=== PATIENT | female | born 1955 | race Caucasian/White ===

== ENCOUNTER 2019-02-10 08:31 | Emergency (ER) | payer MEDICARE, BC ==
[2019-02-10 08:45] VITALS: BP 150/71
[2019-02-10] MEDS ORDERED: Aspirin 81 MG Tab.Chew PO ONE (09:52)
--- NOTE | 2019-02-10 10:55 | CR ---
Chest: Portable view of the chest was obtained. Comparison: Prior chest x-ray of 04/19/14. Heart size is normal. Tortuous thoracic aorta is seen. Lungs are clear. Surgical clip is seen within the right upper abdomen. Mild scoliosis is noted within the spine. Impression: 1. Nothing acute is seen on portable chest x-ray. Diagnostic code #2
--- NOTE | 2019-02-10 12:17 | EDM.PDOC ---
ED HPI GENERAL MEDICAL PROBLEM - General Chief Complaint: Chest Pain Stated Complaint: CHEST PAIN/JAW PAIN/BACK PAIN Time Seen by Provider: 02/10/19 08:45 Source of Information: Reports: Patient History Limitations: Reports: No Limitations - History of Present Illness INITIAL COMMENTS - FREE TEXT/NARRATIVE: The patient presents with chest pain, shortness of breath, jaw pain and shortness of breath. This has been coming and going for a few weeks. Today it was a little worse. She was thinking it was acid reflux. She will usually get it in the morning. The pain is sharp and radiates to her back at times. She has no fever, chills, cough, congestion, runny nose, abdominal pain, nausea or vomiting. She has no history of heart problems. She does have high cholesterol but no high blood pressure. She says exertion does not make it worse. She has no pain now. Onset: Gradual Duration: Week(s): Location: Reports: Face, Chest, Back Quality: Reports: Sharp Severity: Moderate Improves with: Reports: None Worsens with: Reports: None Associated Symptoms: Reports: Chest Pain, Shortness of Breath. 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 04/20/14 [Rx] Evening [place] Oil 500 mg PO DAILY 07/21/14 [History] Fish Oil/[place]-3 Fatty Acids [Fish Oil] 1,200 mg PO DAILY 07/21/14 [History] Garlic [Garlic Oil] 1,000 mg PO DAILY 07/21/14 [History] Karina Root 550 mg PO DAILY 07/21/14 [History] Kelp 150 mcg PO DAILY 07/21/14 [History] Lactobacillus Combination No.4 [Probiotic] 1 cap PO DAILY 07/21/14 [History] Lutein/Min/Vit C/Vit E Acetate [Ocuvite Lutein] 1 cap PO DAILY 07/21/14 [History ] Past Medical History - Past Health History Medical/Surgical History: Denies Medical/Surgical History Social & Family History - Tobacco Use Smoking Status *Q: Never Smoker - Caffeine Use Caffeine Use: Reports: Coffee, Tea - Recreational Drug Use Recreational Drug Use: No ED ROS GENERAL - Review of Systems Review Of Systems: See Below Constitutional: Reports: No Symptoms HEENT: Reports: No Symptoms Respiratory: Reports: Shortness of Breath Cardiovascular: Reports: Chest Pain Endocrine: Reports: No Symptoms GI/Abdominal: Reports: No Symptoms : Reports: No Symptoms Musculoskeletal: Reports: No Symptoms Skin: Reports: No Symptoms ED EXAM, GENERAL - Physical Exam Exam: See Below Exam Limited By: No Limitations General Appearance: Alert, No Apparent Distress Ears: Normal External Exam Nose: Normal Inspection Head: Atraumatic, Normocephalic Neck: Normal Inspection Respiratory/Chest: No Respiratory Distress, Lungs Clear, Normal Breath Sounds Cardiovascular: Regular Rate, Rhythm, No Edema, No Murmur GI/Abdominal: Soft, Non-Tender, No Organomegaly, No Mass Back Exam: Normal Inspection EKG INTERPRETATION EKG Date: 02/10/19 Time: 08:41 Rhythm: NSR Rate (Beats/Min): 75 [place]: Normal P-Wave: Present QRS: Normal ST-T: Other (Flattened T waves in III and flipped T waves in V1, V2 and V3) Course - Vital Signs Last Recorded V/S: Last Vital Signs Temp 97.1 F 02/10/19 08:41 Pulse 70 02/10/19 08:41 Resp 16 02/10/19 08:41 BP 150/71 H 02/10/19 08:41 Pulse Ox 100 02/10/19 08:41 - Orders/Labs/Meds Orders: Active Orders 24 hr Category Date Time Status EKG Documentation Completion [RC] ASDIRECTED Care 02/10/19 08:47 Active EKG Documentation Completion [RC] ASDIRECTED Care 02/10/19 11:16 Active EKG 12 Lead [EK] Stat Ther 02/10/19 08:46 Ordered EKG 12 Lead [EK] Stat Ther 02/10/19 11:16 Ordered Labs: Laboratory Tests 02/10/19 02/10/19 02/10/19 Range/Units 08:55 08:55 12:00 WBC 5.14 (3.98-10.04) K/mm3 RBC 5.17 (3.98-5.22) M/mm3 Hgb 14.8 (11.2-15.7) gm/L Hct 44.5 (34.1-44.9) % MCV 86.1 (79.4-94.8) fl MCH 28.6 (25.6-32.2) pg MCHC 33.3 (32.2-35.5) g/dl RDW Std Deviation 41.1 (36.4-46.3) fL Plt Count 398 H D (182-369) K/mm3 MPV 9.0 L (9.4-12.3) fl Neutrophils % (Manual) 49 (40-60) % Band Neutrophils % 0 (0-10) % Lymphocytes % (Manual) 37 (20-40) % Atypical Lymphs % 0 % Monocytes % (Manual) 8 (2-10) % Eosinophils % (Manual) 5 (0.7-5.8) % Basophils % (Manual) 1 (0.1-1.2) Platelet Estimate Adequate Plt Morphology Comment See note RBC Morph Comment Normal Sodium 140 (136-145) mEq/L Potassium 4.4 (3.5-5.1) mEq/L Chloride 104 (98-107) mEq/L Carbon Dioxide 29 (21-32) mEq/L Anion Gap 11.4 (5-15) BUN 15 (7-18) mg/dL Creatinine 0.8 (0.55-1.02) mg/dL Est Cr Clr Drug Dosing 52.90 mL/min Estimated GFR (MDRD) > 60 (>60) mL/min BUN/Creatinine Ratio 18.8 H (14-18) Glucose 108 (80-115) mg/dL Calcium 9.2 (8.5-10.1) mg/dL Total Bilirubin 0.5 (0.2-1.0) mg/dL AST 23 (15-37) U/L ALT 29 (14-59) U/L Alkaline Phosphatase 84 (46-116) U/L CK-MB (CK-2) 0.6 (0-3.6) ng/ml Troponin I < 0.017 < 0.017 (0.00-0.056) ng/mL Total Protein 7.5 (6.4-8.2) g/dl Albumin 3.8 (3.4-5.0) g/dl Globulin 3.7 gm/dL Albumin/Globulin Ratio 1.0 (1-2) Meds: Medications Discontinued Medications Generic Name Dose Route Start Last Admin Trade Name Justin PRN Reason Stop Dose Admin Aspirin 324 mg 02/10/19 09:52 02/10/19 10:03 Aspirin PO 02/10/19 09:53 324 mg ONETIME ONE Administration - Re-Assessments/Exams Free Text/Narrative Re-Assessment/Exam: 02/10/19 12:23 I ordered an IV saline lock, EKG, labs, CXR and aspirin. Her EKG shows a NSR with flattened T waves in III and flipped T waves in V1, V2, and V3. Her CXR is normal. Her CBC and CMP are normal. Her troponin is negative. I did a repeat EKG and it shows no acute changes from prior. I have ordered a repeat troponin. 02/10/19 12:35 The repeat troponin and repeat EKG are normal. She is still pain free. I will have her follow up with Dr Mercedes in our clinic. Departure - Departure Time of Disposition: 12:40 Disposition: Home, Self-Care 01 Condition: Good Clinical Impression: Atypical chest pain Referrals: PCP,None [Primary Care Provider] - Homa Mercedes MD [Physician] - 1 Week Forms: ED Department Discharge Additional Instructions: Try to take some pepcid daily. Follow up with Dr Mercedes in our clinic and please return if you are worse. - My Orders Last 24 Hours: My Active Orders 02/10/19 08:46 EKG 12 Lead [EK] Stat 02/10/19 08:47 EKG Documentation Completion [RC] ASDIRECTED 02/10/19 11:16 EKG Documentation Completion [RC] ASDIRECTED EKG 12 Lead [EK] Stat - Assessment/Plan Last 24 Hours: My Active Orders 02/10/19 08:46 EKG 12 Lead [EK] Stat 02/10/19 08:47 EKG Documentation Completion [RC] ASDIRECTED 02/10/19 11:16 EKG Documentation Completion [RC] ASDIRECTED EKG 12 Lead [EK] Stat
== END 2019-02-10 12:47 | disposition home or self-care (01) ==
LOC: JD.ED 08:31
DX: R07.89 Other chest pain (principal); Z79.899 Other long term (current) drug therapy
CPT/HCPCS: 36415; 71045; 80053; 82553; 84484; 85007; 85027; 93005; 99285; A9270; 93010; 99284

== ENCOUNTER 2021-03-25 23:20 | Emergency (ER) | payer MEDICARE, BC ==
[2021-03-25] MEDS ORDERED: Orphenadrine 100 MG Tab.ER PO STA (23:54)
--- NOTE | 2021-03-26 | EDM.PDOC ---
ED HPI GENERAL MEDICAL PROBLEM - General Chief Complaint: Chest Pain Stated Complaint: CHEST PAIN Time Seen by Provider: 03/25/21 23:32 Source of Information: Reports: Patient, Family ( + son) History Limitations: Reports: No Limitations - History of Present Illness INITIAL COMMENTS - FREE TEXT/NARRATIVE: Mrs. Maldonado is a pleasant 65-year-old woman who now presents the ED stating that she has been experiencing crampy retrosternal chest pain, posterior neck, jaw, and upper back pain since this past 03/23/2021. In contrast to the triage note, she denies that the pain radiates to either side of her chest or down her right upper extremity. She states that the pain is constant, and that she has not identified any modifiers. She emphasized that she is unable to sleep because of the pain. She states that she has also felt some nausea and slight dyspnea, although no vomiting, diaphoresis, or sense of impending doom. She states that she has tried ice, heat, aspirin, 400 mg of ibuprofen (once), and acetaminophen, and that nothing helps. The patient acknowledges that she has had the upper back pain for years, but states that she has never had this constellation of symptoms in the past. She states that her symptoms are different than when she presented to this ED with chest pain on 02/10/2019. Here in the ED tonight, the patient's initial blood pressure is found to be modestly elevated at 157/78, otherwise, she is hemodynamically stable, afebrile, saturating 93% on room air. She appears to be comfortable, in no acute distress. Other than her chronic upper back pain, prior to Thursday, the patient denies having a recent fever, chills, sore throat, ear pain, nasal or sinus congestion, cough, dyspnea, chest pain, palpitations, nausea, vomiting, constipation, diarrhea, abdominal pain, urinary symptoms, recent weight gain or weight loss, recent bloody bowel movements or black bowel movements, recent joint aches, headaches, or rashes. The patient does not have a PCP. The patient states that she received the [employer] COVID vaccination. Bilateral Chest Pain Score (Numeric/FACES): 8 - Related Data Allergies Allergy/AdvReac Type Severity Reaction Status Date / Time No Known Allergies Allergy Verified 03/25/21 23:32 Home Meds: Home Meds Calc/D3/Mag/Zn/[place] [Calcium 600 MG Plus Vit D] 1 tab PO DAILY 04/18/14 [History] Melatonin/Pyridoxine HCl (B6) [Melatonin-Vit B6 3-10 mg Tab] 1 each PO BEDTIME 04/18/14 [History] Multivitamin [Multi-Vitamin Daily] 1 tab PO DAILY 04/18/14 [History] Niacin (Inositol Niacinate) [Niacin Flush Free] 400 mg PO DAILY 04/18/14 [History] Ubidecarenone [Coq-10] 100 mg PO DAILY 04/18/14 [History] Aspirin [Adult Low Dose Aspirin EC] 81 mg PO DAILY #30 tablet.dr 04/20/14 [Rx] Evening [place] Oil 500 mg PO DAILY 07/21/14 [History] Fish Oil/[place]-3 Fatty Acids [Fish Oil] 1,200 mg PO DAILY 07/21/14 [History] Garlic [Garlic Oil] 1,000 mg PO DAILY 07/21/14 [History] Karina Root 550 mg PO DAILY 07/21/14 [History] Kelp 150 mcg PO DAILY 07/21/14 [History] Lactobacillus Combination No.4 [Probiotic] 1 cap PO DAILY 07/21/14 [History] Lutein/Min/Vit C/Vit E Acetate [Ocuvite Lutein] 1 cap PO DAILY 07/21/14 [History] Past Medical History Cardiovascular History: Reports: High Cholesterol (untreated) Endocrine/Metabolic History: Reports: Obesity/BMI 30+ - Past Surgical History GI Surgical History: Reports: Cholecystectomy (2013) Social & Family History - Tobacco Use Tobacco Use Status *Q: Never Tobacco User Second Hand Smoke Exposure: No - Caffeine Use Caffeine Use: Reports: Coffee, Tea - Alcohol Use Alcohol Use History: No - Recreational Drug Use Recreational Drug Use: No - Living Situation & Occupation Living situation: Reports: , with Spouse Occupation: Retired ED ROS GENERAL - Review of Systems Review Of Systems: Comprehensive ROS is negative, except as noted in HPI. ED EXAM, GENERAL - Physical Exam Exam: See Below Exam Limited By: No Limitations General Appearance: Alert, WD/WN, No Apparent Distress Eye Exam: Bilateral Eye: EOMI, Normal Inspection Ears: Normal External Exam, Hearing Grossly Normal Nose: Normal Inspection Throat/Mouth: Normal Inspection, Normal Lips, Normal Voice, No Airway Compromise Head: Atraumatic, Normocephalic Neck: Normal Inspection, Full Range of Motion Respiratory/Chest: No Respiratory Distress, Lungs Clear, Normal Breath Sounds, No Accessory Muscle Use, Chest Non-Tender (discomfort to palpation of the sternum, although different than presenting pain), Other (Pain is not reproducible by having her hands together with her arms outstretched in front of her, or by crossing either of her arms across her chest) Cardiovascular: Normal Peripheral Pulses, Regular Rate, Rhythm, No Gallop, No JVD, No Murmur, No Rub Peripheral Pulses: 3+: Radial (L), Radial (R) GI/Abdominal: Normal Bowel Sounds, Soft, No Organomegaly, No Distention, No Abnormal Bruit, No Mass, Tender (mild, LUQ only - patient states site has been sore for a few days) Back Exam: Full Range of Motion, Muscle Spasm (Reproducible tenderness to palpation of the bilateral parascapular muscles). No: Vertebral Tenderness Extremities: Normal Inspection, Normal Range of Motion, Normal Capillary Refill Neurological: Alert, Oriented, Normal Cognition, No Motor/Sensory Deficits Psychiatric: Normal Affect Skin Exam: Warm, Dry, Intact, Normal Color, No Rash #1 Interpretation EKG Date: 03/25/21 Time: 23:37 Rhythm: NSR (with single PVC) Rate (Beats/Min): 81 [place]: LAD-Left [place] Deviation (possibly due to LAFB) P-Wave: Present QRS: Other (Late transition) ST-T: Normal QT: Normal Comparison: No Change (02/10/2019) Course - Vital Signs Last Recorded V/S: Last Vital Signs Temp 36.1 C 03/25/21 23:33 Pulse 85 03/25/21 23:33 Resp 16 03/25/21 23:33 BP 157/78 H 03/25/21 23:33 Pulse Ox 93 L 03/25/21 23:33 - Orders/Labs/Meds Orders: Active Orders 24 hr Category Date Time Status EKG 12 Lead [EKG Documentation Completion] [RC] STAT Care 03/25/21 23:31 Active Chest 2V [CR] Stat Exams 03/25/21 23:53 Taken Labs: Laboratory Tests 03/26/21 03/26/21 03/26/21 Range/Units 00:02 00:02 00:02 WBC 8.52 (3.98-10.04) K/mm3 RBC 5.03 (3.98-5.22) M/mm3 Hgb 14.3 (11.2-15.7) gm/dl Hct 43.9 (34.1-44.9) % MCV 87.3 (79.4-94.8) fl MCH 28.4 (25.6-32.2) pg MCHC 32.6 (32.2-35.5) g/dl RDW Std Deviation 41.7 (36.4-46.3) fL Plt Count 381 H (182-369) K/mm3 MPV 9.0 L (9.4-12.3) fl Neutrophils % (Manual) 69 H (40-60) % Band Neutrophils % 0 (0-10) % Lymphocytes % (Manual) 25 (20-40) % Atypical Lymphs % 0 % Monocytes % (Manual) 4 (2-10) % Eosinophils % (Manual) 2 (0.7-5.8) % Basophils % (Manual) 0 L (0.1-1.2) Toxic Granulation Few Platelet Estimate Adequate RBC Morph Comment Normal D-Dimer, Quantitative 0.27 (0.19-0.50) mg/L Sodium 143 (136-145) mEq/L Potassium 4.2 (3.5-5.1) mEq/L Chloride 105 (98-107) mEq/L Carbon Dioxide 29 (21-32) mEq/L Anion Gap 13.2 (5-15) BUN 20 H (7-18) mg/dL Creatinine 1.0 (0.55-1.02) mg/dL Est Cr Clr Drug Dosing 43.18 mL/min Estimated GFR (MDRD) 55 (>60) mL/min BUN/Creatinine Ratio 20.0 H (14-18) Glucose 137 H (70-99) mg/dL Calcium 8.9 (8.5-10.1) mg/dL Total Bilirubin 0.2 (0.2-1.0) mg/dL AST 14 L (15-37) U/L ALT 29 (14-59) U/L Alkaline Phosphatase 81 (46-116) U/L Troponin I 0.237 H* (0.00-0.056) ng/mL NT-Pro-B Natriuret Pep (0-125) pg/mL Total Protein 7.0 (6.4-8.2) g/dl Albumin 3.4 (3.4-5.0) g/dl Globulin 3.6 gm/dL Albumin/Globulin Ratio 0.9 L (1-2) SARS-CoV-2 RNA (MARV) (NEGATIVE) 03/26/21 03/26/21 03/26/21 Range/Units 00:02 01:12 01:40 WBC (3.98-10.04) K/mm3 RBC (3.98-5.22) M/mm3 Hgb (11.2-15.7) gm/dl Hct (34.1-44.9) % MCV (79.4-94.8) fl MCH (25.6-32.2) pg MCHC (32.2-35.5) g/dl RDW Std Deviation (36.4-46.3) fL Plt Count (182-369) K/mm3 MPV (9.4-12.3) fl Neutrophils % (Manual) (40-60) % Band Neutrophils % (0-10) % Lymphocytes % (Manual) (20-40) % Atypical Lymphs % % Monocytes % (Manual) (2-10) % Eosinophils % (Manual) (0.7-5.8) % Basophils % (Manual) (0.1-1.2) Toxic Granulation Platelet Estimate RBC Morph Comment D-Dimer, Quantitative (0.19-0.50) mg/L Sodium (136-145) mEq/L Potassium (3.5-5.1) mEq/L Chloride (98-107) mEq/L Carbon Dioxide (21-32) mEq/L Anion Gap (5-15) BUN (7-18) mg/dL Creatinine (0.55-1.02) mg/dL Est Cr Clr Drug Dosing mL/min Estimated GFR (MDRD) (>60) mL/min BUN/Creatinine Ratio (14-18) Glucose (70-99) mg/dL Calcium (8.5-10.1) mg/dL Total Bilirubin (0.2-1.0) mg/dL AST (15-37) U/L ALT (14-59) U/L Alkaline Phosphatase (46-116) U/L Troponin I 0.253 H* (0.00-0.056) ng/mL NT-Pro-B Natriuret Pep 635 H (0-125) pg/mL Total Protein (6.4-8.2) g/dl Albumin (3.4-5.0) g/dl Globulin gm/dL Albumin/Globulin Ratio (1-2) SARS-CoV-2 RNA (MARV) Negative (NEGATIVE) Meds: Medications Discontinued Medications Generic Name Dose Route Start Last Admin Trade Name Justin PRN Reason Stop Dose Admin Aspirin 324 mg 03/26/21 01:20 03/26/21 01:38 Aspirin 81 Mg Tab.Chew PO 03/26/21 01:21 324 mg ONETIME STA Administration Enoxaparin Sodium 85 mg 03/26/21 01:24 03/26/21 01:40 Enoxaparin 100 Mg/1 Ml Syringe SUBCUT 03/26/21 01:25 85 mg ONETIME STA Administration Nitroglycerin 0.5 gm 03/26/21 01:21 03/26/21 01:38 Nitroglycerin 2% Oint 1 Gm Ud Packet TOP 03/26/21 01:22 0.5 gm ONETIME STA Administration Orphenadrine Citrate 100 mg 03/25/21 23:54 03/26/21 00:08 Orphenadrine 100 Mg Tab.Er PO 03/25/21 23:55 100 mg ONETIME STA Administration - Re-Assessments/Exams Free Text/Narrative Re-Assessment/Exam: 03/25/21 23:56 As above, the patient has been experiencing crampy retrosternal chest pain, as well as posterior neck and upper back pain, and jaw pain, since Thursday. In contrast to the triage note, she denies that the pain radiates to either side of her chest, or down her right upper extremity. Her symptoms have been constant, and she has not identified any modifiers. She indicated to the triage nurse that it is worse at night, but on closer questioning, it appears that her symptoms keep her awake at night, not that they are necessarily worse at night. She has had some slight nausea and possibly slight dyspnea, but no diaphoresis or sense of impending doom. She states that she has had the upper back pain for years, but not this constellation of symptoms, and she acknowledges that her current symptoms are different than when she was seen in this ED in 2019. She states that she tried ice, heat, aspirin, ibuprofen (400 mg, once) and acetaminophen, and that nothing helped. On examination, her pain is not reproducible with direct palpation to her chest, by pressing her hands together with outstretched arms, or by crossing either of her arms across her chest, however, her upper back pain is reproducible by palpation of her bilateral parascapular musculature. Her neck exam is unremarkable. An ECG, obtained at triage, shows no ischemic changes. I suspect that the patient's pain is musculoskeletal in etiology, however, I have ordered a work-up that includes several blood tests and a chest x-ray. In the meantime, I will start the patient on Norflex. Since the ibuprofen did not work, she does not want to try that again. She declined an offer for pain medication and antinausea medication. 03/26/21 00:25 Two-view chest radiograph appears to be grossly normal. The cardiac silhouette is within normal limits. No pulmonary vascular congestion. No pleural effusions. No focal infiltrate. No pneumothorax. Mild thoracolumbar scoliosis noted. Surgical clips noted in the right upper quadrant, consistent with a prior cholecystectomy. Formal read per the Radiologist pending. 03/26/21 01:10 The patient's CBC is remarkable for mild thrombocytosis of 381,000, and is otherwise unremarkable. Her CMP is remarkable for a BUN slightly elevated at 20, but with a Cr normal at 1.0, and mild hyperglycemia of 137, with the remainder of her CMP being unremarkable. Her troponin is elevated at 0.237. Her D-dimer is within normal limits at 0.27. Her Pro-BNP has not yet resulted. I discussed the patient's test results with the patient, her , and her son. I recommended discussing her case with a Protection Manager. She agreed. I have ordered a swab for the SARS-CoV-2 virus. 03/26/21 01:29 Case discussed with Katherine at [facility] at 01:12. Case then discussed with Dr. Yi, Hospitalist at [facility], at 01:18. She recommended we give the patient aspirin, nitroglycerin, and Lovenox. I ordered a full-strength aspirin, 1/2" of Nitropaste, and 85 mg of SQ Lovenox. Dr. Han, Protection Manager at [facility], joined the call at 01:22. He recommended that I repeat the troponin. If it is rising, we will transfer the patient to [facility], and Dr. Yi will accept. If it is not rising, he recommended an outpatient follow-up with a Protection Manager. 03/26/21 01:54 The patient states "I feel fine" after the Nitropaste was applied, however, she is unable to say whether or not the Nitropaste had any effect on her chest pain - she may have been feeling fine before it was applied. 03/26/21 02:54 The patient's pro-BNP is mildly elevated at 635. Her swab for the SARS-CoV-2 virus is negative. Her repeat troponin is slightly higher at 0.253. Based on the above, I will transfer the patient to [facility]. 03/26/21 03:01 The higher troponin and my plan to transfer the patient was discussed with the patient, her , and son. The patient reports that she may have had COVID- 19 in July 2020, insofar as she had been around a friend for a couple of days who subsequently tested positive for the disease, and a few days later, the patient developed mild symptoms. Her friend required hospitalization for 3 months. The patient states, however, that she was never tested for COVID-19 - she just presumes that she had it. She subsequently received the [employer] vaccine. 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 I will leave it to the Protection Manager at [facility] to figure that out. 03/26/21 03:08 [facility] contacted at 03:05. The increased troponin level and the information about the patient's possible COVID infection discussed with Dr. Yi at 03:05. Departure - Departure Time of Disposition: 03:03 Disposition: DC/Tfer to Acute Hospital 02 Condition: Good Clinical Impression: Chest pain of uncertain etiology, Muscle spasm of back, Elevated troponin - Discharge Information *PRESCRIPTION DRUG MONITORING PROGRAM REVIEWED*: Not Applicable *COPY OF PRESCRIPTION DRUG MONITORING REPORT IN PATIENT GARY: Not Applicable Referrals: PCP,None [Primary Care Provider] - Forms: ED Department Discharge Sepsis Event Note (ED) - Evaluation Sepsis Screening Result: No Definite Risk - Focused Exam Vital Signs: Vital Signs Temp Pulse Resp BP Pulse Ox 03/25/21 23:33 36.1 C 85 16 157/78 H 93 L - My Orders Last 24 Hours: My Active Orders 03/25/21 23:31 EKG 12 Lead [EKG Documentation Completion] [RC] STAT 03/25/21 23:53 Chest 2V [CR] Stat - Assessment/Plan Last 24 Hours: My Active Orders 03/25/21 23:31 EKG 12 Lead [EKG Documentation Completion] [RC] STAT 03/25/21 23:53 Chest 2V [CR] Stat
[2021-03-26] MEDS ORDERED: Aspirin 81 MG Tab.Chew PO STA (01:20)
[2021-03-26] MEDS ORDERED: Nitroglycerin 2% Oint 1 GM UD Packet TOP STA (01:21)
[2021-03-26] MEDS ORDERED: Enoxaparin 100 MG/1 ML Syringe SUBCUT STA (01:24)
[2021-03-26 03:20] VITALS: BP 167/72; PULSE 78
--- NOTE | 2021-03-26 07:38 | CR ---
Chest: 2 views of the chest were obtained. Comparison: Prior chest x-ray of 02/10/19. Heart size and mediastinum are normal. Small nodule is noted within the left upper chest which is more prominent than the prior study. Lungs otherwise are clear with no acute parenchymal change. Slight kyphosis is present within the spine. Surgical clips are noted from previous cholecystectomy. Impression: 1. Questionable nodule within the left upper chest more prominent than on prior study. Recommend noncontrast chest CT study to hopefully rule out pulmonary nodule. 2. Nothing acute is otherwise seen on 2 view chest x-ray. Diagnostic code #9
== END 2021-03-26 03:40 ==
LOC: JD.ED 23:20
DX: R07.2 Precordial pain (principal); R07.89 Other chest pain; M62.830 Muscle spasm of back; E78.00 Pure hypercholesterolemia, unspecified; E66.9 Obesity, unspecified; R79.89 Other specified abnormal findings of blood chemistry; Z68.34 Body mass index [BMI] 34.0-34.9, adult; Z20.822 Contact with and (suspected) exposure to COVID-19; Z79.899 Other long term (current) drug therapy; R06.02 Shortness of breath
CPT/HCPCS: 36415; 71046; 80053; 83880; 84484; 85007; 85027; 85379; 93005; 96372; 99285; A9270; J1650; U0002; 93010

== ENCOUNTER 2022-11-02 10:17 | Emergency (ER) | payer MEDICARE, BC ==
[2022-11-02 10:34] VITALS: BP 189/83; PULSE 91
== END 2022-11-02 13:10 | disposition home or self-care (01) ==
LOC: JD.ED 10:17
DX: S82.832A Other fracture of upper and lower end of left fibula, initial encounter for closed fracture (principal); S83.92XA Sprain of unspecified site of left knee, initial encounter; E78.00 Pure hypercholesterolemia, unspecified; I25.2 Old myocardial infarction; E66.9 Obesity, unspecified; Z68.36 Body mass index [BMI] 36.0-36.9, adult; Z79.82 Long term (current) use of aspirin; W01.0XXA Fall on same level from slipping, tripping and stumbling without subsequent striking against object, initial encounter; X50.1XXA Overexertion from prolonged static or awkward postures, initial encounter
CPT/HCPCS: 73564-26-LT; 73564-LT; 73610-26-LT; 73610-LT; 99283

== ENCOUNTER 2023-10-08 16:41 | Emergency (ER) | payer BC, MEDICARE ==
[2023-10-08] MEDS: methylPREDNISolone Sodium Succinate 125 MG/2 ML SDV IM ONE (17:50)
[2023-10-08] MEDS: Orphenadrine 60 MG/2 ML Inj IM ONE (17:50)
[2023-10-08 21:39] VITALS: BP 134/95; PULSE 89
== END 2023-10-08 18:20 | disposition home or self-care (01) ==
LOC: JD.ED 16:41
DX: M54.16 Radiculopathy, lumbar region (principal); I25.2 Old myocardial infarction; E78.00 Pure hypercholesterolemia, unspecified; E66.9 Obesity, unspecified; Z90.49 Acquired absence of other specified parts of digestive tract; Z79.82 Long term (current) use of aspirin; Z79.899 Other long term (current) drug therapy
CPT/HCPCS: 96372; 99283; J2360; J2930